=== PATIENT | female | born 1950 | race Caucasian/White ===

== ENCOUNTER 2017-03-09 09:55 | Day surgery (SDC) | payer MEDICARE ==
[2017-03-08 11:24] VITALS: BMI 49.1
--- NOTE | 2017-03-09 02:06 | HP ---
HISTORY OF PRESENT ILLNESS: Ms. Cook is known to us for previous 2-level ACDF earlier this year, who returns now with worsening neck pain and upper shoulder pains that could potentially be a C4 and partial C5 radiculopathy. We obtained a repeat CT scan from [facility] that reveals significant fo raminal stenosis bilaterally at C3-C4, which I think fits well with her symptoms. She has had few i njections that seemed to have provided some relief, but just short-lived. She is here for possible surgical discussion. PAST MEDICAL HISTORY: Significant for hypertension, gastroesophageal reflux disease and insomnia. PAST SURGICAL HISTORY: History appendectomy, , hysterectomy, arthroscopic knee surgery, ch olecystectomy, bilateral knee replacements and cervical ACDF from C5-C7. FAMILY HISTORY: Father with hypertension and stroke. MEDICATIONS: Metoprolol, pantoprazole and Ambien. ALLERGIES: No known drug allergies. PHYSICAL EXAMINATION: GENERAL: Patient has limited range of motion of the neck bilaterally. She otherwise has good stren gth in the upper extremities. Her gait is undisturbed. ASSESSMENT: Cervical radiculopathy. PLAN: Dr. Kingston met with the patient, reviewed imaging and ultimately advocated for a C3-C4 anterio r cervical diskectomy and fusion. He explained to the patient the risks, benefits, and alternatives to the procedure. The patient expressed understanding and would like to move forward with surgery as discussed. I do believe the patient is mentally competent and capable of making medical decision s for herself and we will move forward with surgery as planned. This is Joey Infante PA-C, dictating for Dr. Kingston.
[2017-03-09] MEDS ORDERED: Thrombin 5000 UNITS/5 ML VIAL ONE (11:09)
[2017-03-09] MEDS ORDERED: Fentanyl 100 MCG/2 ML VIAL ONE ×3 (11:36→13:47)
[2017-03-09] MEDS ORDERED: Lidocaine 2% PF 10 ML AMP (For Epidural Use) ONE (11:44)
[2017-03-09] MEDS ORDERED: Glycopyrrolate 0.2 MG/ML 5 ML SYRINGE ONE (11:44)
[2017-03-09] MEDS ORDERED: Ondansetron HCl/PF 4 MG/2 ML Vial ONE (11:44)
[2017-03-09] MEDS ORDERED: Dexamethasone 20 MG/5 ML VIAL ONE (11:44)
[2017-03-09] MEDS ORDERED: Propofol 200 MG/20 ML VIAL ONE (11:44)
[2017-03-09] MEDS ORDERED: Bupivacaine HCl 0.5%/Epinephrine 1:200,000/PF 30 ml Vial ONE (12:07)
[2017-03-09] MEDS ORDERED: HYDROcodone/Acetaminophen 5/325 mg Tablet ONE (15:17)
--- NOTE | 2017-03-10 13:24 | OP ---
DATE OF OPERATION: 03/09/2017 SURGEON: Luis Kingston M.D. [employer] REPAIRER: Joey Infante PA-C INDICATION: Prevent neurologic decline. DIAGNOSIS: Cervical stenosis with myelopathy and radiculopathy. PROCEDURE: Anterior cervical discectomy and fusion C3-C4. TECHNIQUE: The patient was brought into the operating room and placed under general anesthesia. Sh e was placed on the table in a supine position. A transverse incision was planned along the lateral aspect of the neck on the right. After prepping and draping and after an appropriate operative mariza se, the incision was created. The underlying platysma muscle was identified and incised. A blunt t issue plane was used to establish the prevertebral space. After identifying the appropriate level, an annulotomy was performed at C3-C4 disk space. All disk material as well as anterior and posterio r osteophytes were removed. After complete decompression, a 6 mm lordotic PEEK cage packed with all ograft and autograft material was placed within the interbody space. An anterior cervical plate was then fashioned to the front of the spine and secured with a total of 4 fixed screws. Midline and l ateral structures were then inspected and found to be free from significant trauma. The wound was i rrigated. Hemostasis was maintained throughout. The wound was then closed in anatomic layers and a pressure dressing was applied. There were no known procedural complications.
== END 2017-03-09 17:50 | disposition home or self-care (01) ==
LOC: SDC 09:55
PROVIDERS: ATTEND Neurological Surgery
PROC: 0RB30ZZ Excision of Cervical Vertebral Disc, Open Approach (ICD-10-PCS; principal; 2017-03-09)
PROC: 0RG20A0 Fusion of 2 or more Cervical Vertebral Joints with Interbody Fusion Device, Anterior Approach, Anterior Column, Open Approach (ICD-10-PCS; 2017-03-09)
PROC: 0RG1070 Fusion of Cervical Vertebral Joint with Autologous Tissue Substitute, Anterior Approach, Anterior Column, Open Approach (ICD-10-PCS; 2017-03-09)
DX: M48.02 Spinal stenosis, cervical region (principal); M54.12 Radiculopathy, cervical region; I10 Essential (primary) hypertension; K21.9 Gastro-esophageal reflux disease without esophagitis; Z79.899 Other long term (current) drug therapy; Z90.49 Acquired absence of other specified parts of digestive tract; Z90.710 Acquired absence of both cervix and uterus; Z98.1 Arthrodesis status; Z98.41 Cataract extraction status, right eye; Z98.42 Cataract extraction status, left eye; Z96.653 Presence of artificial knee joint, bilateral; Z98.891 History of uterine scar from previous surgery; Z82.49 Family history of ischemic heart disease and other diseases of the circulatory system
CPT/HCPCS: 20930; 20936; 22551; 22853; 76001; 96374; C1713; C1768; J0670; J1100; J2001; J2405; J2704; J3010

== ENCOUNTER 2021-08-25 13:01 | Outpatient (CLI) | payer MEDICARE | END 2021-08-25 13:02 | disposition home or self-care (01) | LOC: MRI 13:01 | PROVIDERS: ATTEND Neurological Surgery | DX: M54.50 Low back pain, unspecified (principal); M54.2 Cervicalgia; M47.816 Spondylosis without myelopathy or radiculopathy, lumbar region; M47.817 Spondylosis without myelopathy or radiculopathy, lumbosacral region; M47.815 Spondylosis without myelopathy or radiculopathy, thoracolumbar region; M47.813 Spondylosis without myelopathy or radiculopathy, cervicothoracic region; M47.812 Spondylosis without myelopathy or radiculopathy, cervical region; Z98.1 Arthrodesis status; Z98.890 Other specified postprocedural states | CPT/HCPCS: 72141; 72148 ==